=== PATIENT | female | born 1945 | race Caucasian/White ===

== ENCOUNTER 2017-07-04 18:01 | Emergency (ER) | payer OTHER ==
[~2017-07-04] VITALS: Ht 165.1 cm; Wt 77.1 kg
[~2017-07-04 18:01] MED LIST: ASA5UEC PO; FLEXERIL PO; GLUCOPHAGE850 MG PO; GLYBURIDE 2.52.5 MG PO; HYDROCODONE-AP1 EAC6 PO; LEVEMIR100 UNIT/1 SUBQ; LIPITOR 20 MG T20 M1 PO; LISINOPRIL10 MG PO; NORCO 10-325 T1 EACH PO; OMEPRAZOLE20 M2 PO; TESSALON PERLE100 MG PO; VENTOLIN HFA 1818 GM INH
[2017-07-04] MEDS ORDERED: OMEPRAZOLE 20 M20 M1 PO (18:14)
[2017-07-04] MEDS ORDERED: AMARYL4 MG PO (18:14)
[2017-07-04] MEDS ORDERED: KEFLEX500 M1 PO (18:26)
[2017-07-04] MEDS ORDERED: BACTRIM DS TAB1 EACH PO (18:26)
[2017-07-04] MEDS ORDERED: BACTROBAN CREAM30 G1 TOP (18:27)
[2017-07-04] MEDS ORDERED: HYDROCODONE-AP1 EAC6 PO (18:30)
[2017-07-04 18:50] VITALS: BP 164/101
== END 2017-07-04 18:50 | disposition home or self-care (01) ==
LOC: M.ERS 18:01
DX: N76.4 Abscess of vulva (principal); Z88.5 Allergy status to narcotic agent

== ENCOUNTER 2018-05-07 13:27 | Emergency (ER) | payer OTHER ==
[~2018-05-07] VITALS: Ht 165.1 cm; Wt 74.8 kg
[~2018-05-07 13:27] MED LIST changes: +AMARYL4 MG PO; +BACTRIM DS TAB1 EACH PO; +BACTROBAN CREAM30 G1 TOP; +KEFLEX500 M1 PO; +OMEPRAZOLE 20 M20 M1 PO
[2018-05-07] MEDS ORDERED: MOBIC7.5 MG PO (15:03)
[2018-05-07 15:16] VITALS: BP 153/78
== END 2018-05-07 15:17 | disposition home or self-care (01) ==
LOC: M.ERS 13:27
DX: M13.861 Other specified arthritis, right knee (principal); K21.9 Gastro-esophageal reflux disease without esophagitis; E07.9 Disorder of thyroid, unspecified; Z88.5 Allergy status to narcotic agent

== ENCOUNTER → 2019-05-21 | Outpatient (CLI) | payer OTHER ==
[~2019-05-21] MED LIST changes: +MOBIC7.5 MG PO
== END ==
LOC: M.RAD 11:23
DX: M19.072 Primary osteoarthritis, left ankle and foot (principal); M77.32 Calcaneal spur, left foot